=== PATIENT | male | born 1955 | race African-American/Black ===

== ENCOUNTER 2023-04-25 04:22 | Emergency (ER) | payer MEDICARE, MEDICAID ==
[~2023-04-25] VITALS: Ht 175.3 cm; Wt 104.0 kg
[2023-04-25 04:27] VITALS: BP 169/85; RESP 16; TEMP 98.2; O2SAT 98
[2023-04-25 04:28] VITALS: PULSE 127
[2023-04-25 07:21] LABS: CLARITY URINE CLEAR (CLEAR); COLOR URINE YELLOW (YELLOW); GLUCOSE URINE NEGATIVE (NEGATIVE); KETONES URINE NEGATIVE (NEGATIVE); LEUKOCYTE ESTERASE URINE NEGATIVE (NEGATIVE); NITRITE URINE NEGATIVE (NEGATIVE); OCCULT BLOOD URINE NEGATIVE (NEGATIVE); PROTEIN URINE NEGATIVE (NEGATIVE); SPECIFIC GRAVITY URINE 1.017 (1.005-1.030); UROBILINOGEN URINE 0.2 E.U./dL (0.2-1.0)
== END 2023-04-25 09:24 | disposition home or self-care (01) ==
LOC: ER 04:22
DX: R33.9 Retention of urine, unspecified (principal); I10 Essential (primary) hypertension
CPT/HCPCS: 51702; 81003; 99284; A4315

== ENCOUNTER 2023-05-24 11:05 | Emergency (ER) | payer MEDICARE, MEDICAID ==
[~2023-05-24] VITALS: Ht 177.8 cm; Wt 118.0 kg
[2023-05-24 11:10] VITALS: O2SAT 98
[2023-05-24] MEDS ORDERED: FAMOTIDINE 20MG TABLET PO ONE (12:15)
[2023-05-24] MEDS ORDERED: DEXAMETHASONE 4MG TABLET PO ONE (12:15)
[2023-05-24] MEDS ORDERED: EPIN0.3P3 IM (12:19)
[2023-05-24 13:26] VITALS: BP 133/84; TEMP 98
[2023-05-24 13:36] VITALS: PULSE 92; RESP 16
== END 2023-05-24 14:49 | disposition home or self-care (01) ==
LOC: ER 11:05
DX: R22.0 Localized swelling, mass and lump, head (principal); I10 Essential (primary) hypertension; Z98.890 Other specified postprocedural states
CPT/HCPCS: 99283; J8540